=== PATIENT | male | born 1980 | race American Indian/Alaskan Native ===

== ENCOUNTER 2020-12-27 12:48 | Emergency (ER) | payer SELFPAY | END 2020-12-27 13:30 | disposition left against medical advice (07) | LOC: ED 12:48 | DX: Z53.21 Procedure and treatment not carried out due to patient leaving prior to being seen by health care provider (principal) ==

== ENCOUNTER 2020-12-27 22:01 | Emergency (ER) | payer OTHER ==
--- NOTE | 2020-12-27 23:15 | Event Note ---
ED Screening Note Date of service: 12/27/20 Time: 23:14 ED Screening Note: 40-year-old -[place] male presents to the emergency room planing of abdominal pain. Patient states has been drinking since Carter's Day after the of his grandfather. This initial assessment/diagnostic orders/clinical plan/treatment(s) is/are subject to change based on patients health status, clinical progression and re- assessment by fellow clinical providers in the ED. Further treatment and workup at subsequent clinical providers discretion. Patient/guardian urged not to elope from the ED as their condition may be serious if not clinically assessed and managed. Initial orders include:
[2020-12-27] MEDS ORDERED: SODIUM CHLORIDE 0.9% 1000 ML 1,000 ML IV ONE (23:52)
[2020-12-27] MEDS ORDERED: ONDANSETRON 4 MG/2 ML INJ IV ONE (23:53)
--- NOTE | 2020-12-27 23:56 | Emergency Department Report ---
ED Abdominal Pain HPI - General Chief Complaint: Abdominal Pain Stated Complaint: STOMACH PAIN, N/V PUI?: No Time Seen by Provider: 12/27/20 23:52 Source: patient Mode of arrival: Ambulatory Limitations: No Limitations - History of Present Illness Initial Comments: Patient is a 40-year-old male that presents emergency room with complaints of generalized abdominal pain, nausea and vomiting. Patient states his symptoms been going off and on since December 09. Patient states he started drinking heavily when his grandfather on . Patient states he is had a drink at least every day. Patient states he is drunk every day. Patient also complains of nausea and vomiting. Patient states the abdominal pain is generalized. Patient states he is also been taking ibuprofen for the pain. Patient denies recent travel. Patient denies recent international travel. Patient denies exposure to the novel coronavirus. Patient denies sick contacts. Patient denies fever and chills. Patient denies cough. Patient denies diarrhea. Patient denies coming in contact with anybody with symptoms of the novel coronavirus. MD Complaint: abdominal pain -: Sudden, week(s) Location: diffuse Radiation: none Migration to: no migration Severity: severe Severity scale (0 -10): 10 Quality: stabbing Consistency: constant Improves With: rest Worsens With: eating, vomiting, movement Context: other Associated Symptoms: nausea, vomiting. denies: diarrhea, fever (Patient is a Advil and alcohol for pain.), chills, constipation, dysuria, hematemesis, hematochezia, melena, hematuria, syncope - Related Data Previous Rx's Medication Instructions Recorded Last Taken Type Omeprazole 40 mg PO BID #20 capsule. 12/28/20 Unknown Rx Ondansetron [Zofran Odt] 4 mg PO Q6HR PRN #20 tab.rapdis 12/28/20 Unknown Rx Allergies Allergy/AdvReac Type Severity Reaction Status Date / Time No Known Allergies Allergy Unverified 12/27/20 23:12 ED Review of Systems ROS: Stated complaint: STOMACH PAIN, N/V Other details as noted in HPI Constitutional: denies: chills, fever Eyes: denies: eye pain, eye discharge, vision change ENT: denies: ear pain, throat pain Respiratory: denies: cough, shortness of breath, wheezing Cardiovascular: denies: chest pain, palpitations Endocrine: no symptoms reported Gastrointestinal: as per HPI, abdominal pain, nausea, vomiting. denies: diarrhea Genitourinary: denies: urgency, dysuria Musculoskeletal: denies: back pain, joint swelling, arthralgia Skin: denies: rash, lesions Neurological: denies: headache, weakness, paresthesias Psychiatric: denies: anxiety, depression Hematological/Lymphatic: denies: easy bleeding, easy bruising ED Past Medical Hx - Past Medical History Previous Medical History?: Yes Hx Hypertension: Yes - Surgical History Past Surgical History?: No - Family History Family history: no significant - Social History Smoking Status: Never Smoker Substance Use Type: Alcohol - Medications Home Medications: Home Medications Medication Instructions Recorded Confirmed Last Taken Type Omeprazole 40 mg PO BID #20 capsule. 12/28/20 Unknown Rx Ondansetron [Zofran Odt] 4 mg PO Q6HR PRN #20 tab.tess 12/28/20 Unknown Rx ED Physical Exam - General Limitations: No Limitations General appearance: alert, in no apparent distress - Head Head exam: Present: atraumatic, normocephalic - Eye Eye exam: Present: normal appearance - ENT ENT exam: Present: mucous membranes moist - Neck Neck exam: Present: normal inspection - Respiratory Respiratory exam: Present: normal lung sounds bilaterally. Absent: respiratory distress - Cardiovascular Cardiovascular Exam: Present: regular rate, normal rhythm. Absent: systolic murmur, diastolic murmur, rubs, gallop - GI/Abdominal GI/Abdominal exam: Present: soft, tenderness (Generalized tenderness to palpa tion), normal bowel sounds - Rectal Rectal exam: Present: deferred - Extremities Exam Extremities exam: Present: normal inspection - Back Exam Back exam: Present: normal inspection - Neurological Exam Neurological exam: Present: alert, oriented X3 - Psychiatric Psychiatric exam: Present: normal affect, normal mood - Skin Skin exam: Present: warm, dry, intact, normal color. Absent: rash ED Course Vital Signs 12/27/20 12/28/20 12/28/20 23:01 00:23 05:38 Temperature 98.3 F 98.0 F Pulse Rate 144 H 124 H 122 H Respiratory 18 20 17 Rate Blood Pressure 182/116 Blood Pressure 159/100 [Right] O2 Sat by Pulse 100 100 98 Oximetry - Reevaluation(s) Reevaluation #1: Patient states he is feeling much better. Patient receiving banana bag and fluids. Patient states his nausea has resolved. 12/28/20 01:09 Reevaluation #2: Patient states his nausea and vomiting have resolved. Patient states he tolerated p.o. intake. Patient tolerated GI cocktail. Patient states his abdominal pain and epigastric pain are better. 12/28/20 04:25 Reevaluation #3: I discussed all results and clinical findings with patient. I discussed plan of care with patient. Patient agrees with plan of care. Patient is stable for discharge. Patient will be discharged home. Patient given discharge instructions. Patient voiced understanding of discharge instructions. 12/28/20 05:25 ED Medical Decision Making - Lab Data Result diagrams: 12/27/20 23:19 12/27/20 23:19 - Radiology Data Radiology results: report reviewed CT ABDOMEN AND PELVIS WITH CONTRAST HISTORY: Epigastric pain. COMPARISON: None TECHNIQUE: Routine abdominal and pelvic CT exam performed following intravenous contrast administration.. All CT scans at this location are performed using CT dose reduction for ALARA by means of automated exposure control. FINDINGS: CT ABDOMEN: Lung Bases: No significant abnormality. Liver: No significant abnormality. Biliary: No significant abnormality. Spleen: No significant abnormality. Unenlarged. Pancreas: No significant abnormality. Adrenals: No significant abnormality. Kidneys: No significant abnormality. Lymphatics: No lymphadenopathy. Vasculature: No significant abnormality. Bowel/Peritoneum: No significant abnormality. No free air. No free fluid. Normal appendix. CT PELVIC: : No significant abnormality. Lymphatics: No lymphadenopathy. Osseous Structures: No aggressive appearing osseous lesions. Additional Findings: None IMPRESSION: 1. No acute findings. - Medical Decision Making Patient is a 40-year-old male who presents emergency room with complaints of abdominal pain and nausea vomiting. Patient's been drinking heavily for the past few weeks. Patient is also taking ibuprofen on top of the alcohol. Patient given fluids, patient also reviewed Zofran and Reglan. Patient's nausea eventually resolved. Patient then given a GI cocktail and his symptoms improved. Patient tolerated p.o. challenge. Patient had a CT scan of the abdomen done which was negative for acute findings. Patient had labs done which were consistent with acute alcohol intoxication. Patient responded well to treatment. Patient given treatment programs to follow-up as an outpatient. Patient monitored until he was clinically and legally sober. Patient stable for discharge. Patient given discharge instructions. - Differential Diagnosis Alcoholic gastritis, abdominal pain, nausea, vomiting, Critical care attestation.: If time is entered above; I have spent that time in minutes in the direct care of this critically ill patient, excluding procedure time. ED Disposition Clinical Impression: Acute alcohol intoxication Qualifiers: Complication of substance-induced condition: uncomplicated Qualified Code(s): F10.920 - Alcohol use, unspecified with intoxication, uncomplicated Nausea & vomiting Qualifiers: Vomiting type: unspecified Vomiting Intractability: non-intractable Qualified Code(s): R11.2 - Nausea with vomiting, unspecified Abdominal pain Qualifiers: Abdominal location: generalized Qualified Code(s): R10.84 - Generalized abdominal pain Alcoholic gastritis Qualifiers: Chronicity: acute Gastritis bleeding: without bleeding Qualified Code(s): K29.20 - Alcoholic gastritis without bleeding Disposition: TO HOME OR SELFCARE Is pt being admited?: No Does the pt Need Aspirin: No Condition: Stable Instructions: Gastritis, Adult, [id number], Binge-Drinking Information, Adult, Nausea and Vomiting, Adult Additional Instructions: Patient to follow-up with primary care in 2 to 3 days. Patient to decrease alcohol intake. Patient to go to rehab as soon as possible. Patient to rest. Patient to increase water. Patient to avoid drug use. Patient to eat a reflux diet. Patient to avoid ibuprofen. Patient to take Tylenol as needed for pain. Patient to take meds as directed. Patient to return to the ER if condition worsens, changes or new symptoms arise. Patient to follow-up with one of the outpatient treatment program provided to him in the ER. Prescriptions: Omeprazole 40 mg PO BID #20 capsule. Ondansetron [Zofran Odt] 4 mg PO Q6HR PRN #20 tab.rapdis PRN Reason: Nausea And Vomiting Referrals: PRIMARY CARE, [Primary Care Provider] - 2-3 Days SHAZIA ROSA MD [Staff Physician] - 2-3 Days Time of Disposition: :28
[2020-12-28 00:03] LABS: Basophils % (Auto) 0.9 % (0.0-1.8); Eosinophils % (Auto) 0.1 % (0.0-4.3); Hematocrit 44.7 % (35.5-45.6); Hemoglobin 15.7 gm/dl (11.8-15.2); Lymphocytes % (Auto) 51.3 % (13.4-35.0); Mean Corpuscular HGB Conc 35 % (32-34); Mean Corpuscular Volume 90 fl (84-94); Monocytes # (Auto) 0.4 K/mm3 (0.0-0.8); Monocytes % (Auto) 9.7 % (0.0-7.3); Platelet Count 302 K/mm3 (140-440); Red Blood Count 4.97 M/mm3 (3.65-5.03); Red Cell Distribution Width 13.4 % (13.2-15.2)
[2020-12-28 00:23] VITALS: BP 159/100
[2020-12-28 00:25] LABS: Amphetamine Screen,Urine PRESUMPTIVE NEGATIVE; Benzodiazepines Screen,Urine PRESUMPTIVE NEGATIVE; Cannabinoid Screen,Urine PRESUMPTIVE POSITIVE; Cocaine Screen,Urine PRESUMPTIVE POSITIVE; Methadone Screen,Urine PRESUMPTIVE NEGATIVE; Opiate Screen,Urine PRESUMPTIVE NEGATIVE
[2020-12-28] MEDS ORDERED: THIAMINE 100 MG, FOLIC ACID 1 MG, MULTIPLE VITAMIN INJ, ADULT 10 ML in SODIUM CHLORIDE ... IV ONE (00:25)
[2020-12-28 00:47] LABS: Alanine Aminotransferase 44 units/L (7-56); Albumin 4.9 g/dL (3.9-5); BUN/Creatinine Ratio 11; Blood Urea Nitrogen 10 mg/dL (9-20); Hemolysis Index 6
--- NOTE | 2020-12-28 01:13 | Cat Scan Report ---
CT ABDOMEN AND PELVIS WITH CONTRAST HISTORY: Epigastric pain. COMPARISON: None TECHNIQUE: Routine abdominal and pelvic CT exam performed following intravenous contrast administrat ion.. All CT scans at this location are performed using CT dose reduction for ALARA by means of autom ated exposure control. FINDINGS: CT ABDOMEN: Lung Bases: No significant abnormality. Liver: No significant abnormality. Biliary: No significant abnormality. Spleen: No significant abnormality. Unenlarged. Pancreas: No significant abnormality. Adrenals: No significant abnormality. Kidneys: No significant abnormality. Lymphatics: No lymphadenopathy. Vasculature: No significant abnormality. Bowel/Peritoneum: No significant abnormality. No free air. No free fluid. Normal appendix. CT PELVIC: : No significant abnormality. Lymphatics: No lymphadenopathy. Osseous Structures: No aggressive appearing osseous lesions. Additional Findings: None IMPRESSION: 1. No acute findings. Signer Name: Edgar Blackburn MD Signed: 12/28/2020 1:08 AM Workstation Name: [id number]
[2020-12-28] MEDS ORDERED: LIDOCAINE VISCOUS 2% 15 ML ORAL LIQD PO ONE (02:42)
[2020-12-28] MEDS ORDERED: ALUM-MAG HYDROXIDE-SIMETHICONE 200-200-20MG/5ML ORAL LIQD 30 ML PO ONE (02:42)
[2020-12-28] MEDS ORDERED: METOCLOPRAMIDE 10 MG/2 ML INJ IV ONE (02:46)
== END 2020-12-28 05:38 | disposition home or self-care (01) ==
LOC: ED 22:01
DX: F10.129 Alcohol abuse with intoxication, unspecified (principal); K29.20 Alcoholic gastritis without bleeding; I10 Essential (primary) hypertension; Z79.899 Other long term (current) drug therapy
CPT/HCPCS: 36415; 74177; 80053; 80307; 83690; 83735; 84100; 85025; 96365; 96375; 99284; J2405; J2765; J3411; J7030; Q9967; 80320; G0480

== ENCOUNTER 2021-03-11 19:49 | Emergency (ER) | payer OTHER ==
--- NOTE | 2021-03-11 20:27 | Emergency Department Report ---
ED Seizure HPI - General Chief Complaint: Seizure Stated Complaint: SEIZURE Time Seen by Provider: 03/11/21 20:22 Source: patient Mode of arrival: Ambulatory Limitations: No Limitations - History of Present Illness Initial Comments: Patient is 41 years old male with no significant past medical history. Patient brought to the emergency room via EMS from work after patient had a seizure-like episode. Patient stated that he does not remember anything. Patient stated that he is a coworker told him that he fell on the ground and started convulsing. Patient has a hematoma to the left posterior scalp. Patient denied any history of seizure before. Patient stated that he did not sleep last night he was watching a show the whole night and then he went to work in the morning. MD Complaint: seizure -: Sudden Description of Episode: loss of consciousness, tonic-clonic movement, post-event confusion Witnessed:: Yes Trauma: Yes Seizure History: none Place: work Associated Symptoms: denies other symptoms Treatments Prior to Arrival: none - Related Data Previous Rx's Medication Instructions Recorded Last Taken Type Omeprazole 40 mg PO BID #20 capsule. 12/28/20 Unknown Rx Ondansetron [Zofran Odt] 4 mg PO Q6HR PRN #20 tab.rapdis 12/28/20 Unknown Rx Allergies Allergy/AdvReac Type Severity Reaction Status Date / Time No Known Allergies Allergy Unverified 12/27/20 23:12 ED Review of Systems ROS: Stated complaint: SEIZURE Other details as noted in HPI Comment: All other systems reviewed and negative Constitutional: denies: chills, fever Respiratory: denies: cough, shortness of breath, SOB with exertion, SOB at rest Cardiovascular: palpitations. denies: chest pain Gastrointestinal: denies: abdominal pain, nausea, vomiting, diarrhea, constipation, hematemesis Musculoskeletal: denies: back pain Neurological: denies: headache ED Past Medical Hx - Past Medical History Previous Medical History?: No Hx Hypertension: Yes - Surgical History Past Surgical History?: No - Social History Smoking Status: Unknown if ever smoked Substance Use Type: None - Medications Home Medications: Home Medications Medication Instructions Recorded Confirmed Last Taken Type Omeprazole 40 mg PO BID #20 capsule. 12/28/20 Unknown Rx Ondansetron [Zofran Odt] 4 mg PO Q6HR PRN #20 tab.rapdis 12/28/20 Unknown Rx ED Physical Exam - General Limitations: No Limitations General appearance: alert, anxious - Head Head exam: Present: normocephalic, other (4 cm x 4 cm hematoma to the left posterior scalp.) - Eye Eye exam: Present: normal appearance - ENT ENT exam: Present: normal exam, normal orophraynx, mucous membranes moist - Neck Neck exam: Present: normal inspection, full ROM. Absent: tenderness, meningismus - Respiratory Respiratory exam: Present: normal lung sounds bilaterally - Cardiovascular Cardiovascular Exam: Present: tachycardia - GI/Abdominal GI/Abdominal exam: Present: soft, normal bowel sounds. Absent: distended, tenderness, guarding, rebound, rigid, organomegaly, mass, bruit, pulsatile mass, hernia - Extremities Exam Extremities exam: Present: normal inspection, full ROM, normal capillary refill. Absent: tenderness, pedal edema, joint swelling, calf tenderness - Back Exam Back exam: Present: normal inspection, full ROM. Absent: CVA tenderness (R), CVA tenderness (L) - Neurological Exam Neurological exam: Present: alert, oriented X3, CN II-XII intact, normal gait, r eflexes normal. Absent: motor sensory deficit - Psychiatric Psychiatric exam: Present: normal mood, anxious - Skin Skin exam: Present: warm, intact, normal color ED Course Vital Signs 03/11/21 03/11/21 03/11/21 19:50 20:02 20:16 Temperature 98.8 F Pulse Rate 134 H 120 H 113 H Respiratory 16 20 20 Rate Blood Pressure 142/74 147/99 O2 Sat by Pulse 100 100 Oximetry 03/11/21 03/11/21 03/11/21 20:30 20:46 21:00 Temperature Pulse Rate 106 H 112 H 108 H Respiratory 22 13 17 Rate Blood Pressure 150/99 150/99 137/95 O2 Sat by Pulse 100 100 100 Oximetry 03/11/21 03/11/21 03/11/21 21:20 21:42 22:00 Temperature Pulse Rate 105 H 106 H 107 H Respiratory 13 23 14 Rate Blood Pressure 137/95 O2 Sat by Pulse 100 100 100 Oximetry 03/11/21 03/11/21 03/11/21 22:20 22:40 23:00 Temperature Pulse Rate 113 H 105 H 108 H Respiratory 21 16 19 Rate Blood Pressure 140/105 140/105 140/105 O2 Sat by Pulse 99 100 100 Oximetry ED Medical Decision Making - Lab Data Result diagrams: 03/11/21 20:29 03/11/21 20:29 - EKG Data -: EKG Interpreted by Me EKG shows normal: sinus rhythm Rate: tachycardia - EKG Data Interpretation: no acute changes - Radiology Data Radiology results: report reviewed - Medical Decision Making Patient is 41 years old male with no significant past medical history. Patient brought to the emergency room via EMS from work after patient had a seizure-like episode. Patient stated that he does not remember anything. Patient stated that he is a coworker told him that he fell on the ground and started convulsing. Patient has a hematoma to the left posterior scalp. Patient denied any history of seizure before. Patient stated that he did not sleep last night he was watching a show the whole night and then he went to work in the morning. No seizure activity observed in the ER. Patient remained stable with stable vital sign. Labs reviewed and is unremarkable except for positive UDS for cocaine and marijuana. CT brain is negative for acute finding. Patient advised to follow-up with his primary care physician in the next 2 to 3 days. Patient also advised not to operate or drive heavy machinery. Patient also advised to return to the ER if he develop any new symptoms. Critical care attestation.: If time is entered above; I have spent that time in minutes in the direct care of this critically ill patient, excluding procedure time. ED Disposition Clinical Impression: Seizure-like activity Disposition: DC-01 TO HOME OR SELFCARE Is pt being admited?: No Condition: Stable Instructions: Seizure, Adult, [id number] Referrals: PRIMARY CARE, [Primary Care Provider] - 3-5 Days
[2021-03-11 20:48] LABS: Basophils % (Auto) 0.2 % (0.0-1.8); Eosinophils % (Auto) 0.2 % (0.0-4.3); Hematocrit 36.8 % (35.5-45.6); Hemoglobin 12.7 gm/dl (11.8-15.2); Lymphocytes # (Auto) 0.5 K/mm3 (1.2-5.4); Mean Corpuscular HGB Conc 35 % (32-34); Mean Corpuscular Volume 91 fl (84-94); Monocytes # (Auto) 0.3 K/mm3 (0.0-0.8); Monocytes % (Auto) 5.8 % (0.0-7.3); Platelet Count 229 K/mm3 (140-440); Red Blood Count 4.04 M/mm3 (3.65-5.03); Red Cell Distribution Width 13.3 % (13.2-15.2)
[2021-03-11 21:03] LABS: Alanine Aminotransferase 57 units/L (7-56); Albumin 4.4 g/dL (3.9-5); BUN/Creatinine Ratio 23; Blood Urea Nitrogen 23 mg/dL (9-20); Calcium 9.8 mg/dL (8.4-10.2); Hemolysis Index 6
[2021-03-11 21:05] LABS: Bilirubin,Direct < 0.2 mg/dL (0-0.2)
[2021-03-11 21:57] LABS: Bilirubin,Urine NEG (Negative); Blood,Urine NEG (Negative); Color,Urine Yellow (Yellow); Mucus,Urine FEW /HPF; Urobilinogen,Urine < 2.0 mg/dL (<2.0)
[2021-03-11 22:05] LABS: Amphetamine Screen,Urine Negative; Benzodiazepines Screen,Urine Negative; Methadone Screen,Urine Negative; Opiate Screen,Urine Negative
--- NOTE | 2021-03-11 22:08 | Cat Scan Report ---
CT head/brain wo con INDICATION / CLINICAL INFORMATION: 41 years Male; Seizure / new onset. TECHNIQUE: Routine CT head without contrast. All CT scans at this location are performed using CT dos e reduction for ALARA by means of automated exposure control. COMPARISON: None. FINDINGS: BRAIN / INTRACRANIAL CONTENTS: No acute hemorrhage, mass effect, midline shift, hydrocephalus, or acu te, large territorial infarct. No signs of significant atrophy or chronic infarct. No significant whi te matter abnormality seen. CRANIOCERVICAL JUNCTION: No significant abnormality. ORBITS: No significant abnormality of visualized orbits. SINUSES / MASTOIDS: Focal dehiscence of lamina papyracea noted on the left. ADDITIONAL FINDINGS: Subcutaneous soft tissue swelling seen in the left posterior parietal region. No signs of underlying calvarial fracture. IMPRESSION: 1. No focal mass, intracranial hemorrhage, hydrocephalus, or acute, large territorial infarct. Signer Name: Bubba Birmingham MD, III Signed: 03/11/2021 10:04 PM Workstation Name: [id number]
[2021-03-11 22:18] LABS: Cannabinoid Screen,Urine Positive; Cocaine Screen,Urine Positive
[2021-03-11 23:07] VITALS: BP 140/105
--- NOTE | 2021-03-12 10:30 | Electrocardiograph Report ---
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
== END 2021-03-12 01:15 | disposition home or self-care (01) ==
LOC: ED 19:49
DX: R56.9 Unspecified convulsions (principal); I10 Essential (primary) hypertension; Z79.899 Other long term (current) drug therapy
CPT/HCPCS: 36415; 70450; 80048; 80076; 80307; 80320; 81001; 82550; 85025; 93005; G0480

== ENCOUNTER 2021-09-09 19:12 | Emergency (ER) | payer OTHER ==
[2021-09-09] MEDS ORDERED: OLANzapine ZYDIS 5 MG TAB PO ONE (19:45)
--- NOTE | 2021-09-09 19:46 | Emergency Department Report ---
ED General Adult HPI - General Chief complaint: Psych Stated complaint: DEPRESSION, ANXIETY Time Seen by Provider: 09/09/21 19:35 Source: patient Mode of arrival: Ambulatory Limitations: No Limitations - History of Present Illness Initial comments: Patient presents with depression and anxiety. He states that he is very mad at himself and disappointed. He states that his grandmother 3 weeks ago. He has been on an alcohol and drug binge since then. He has been using pills, cocaine, and drinking. He came in for evaluation treatment because he was just upset with himself. He is not suicidal or homicidal. Is not delusional. He states that he wants help. He knows that what he did was stupid and he should not have done it. He states that his dropped him off. Patient is not hearing voices. He states that he does not feel things crawling on his skin. Severity scale (0 -10): 2 - Related Data Previous Rx's Medication Instructions Recorded Last Taken Type Omeprazole 40 mg PO BID #20 capsule. 12/28/20 Unknown Rx Ondansetron [Zofran ODT TAB] 4 mg PO Q6HR PRN #20 tab.rapdis 09/09/21 Unknown Rx hydrOXYzine HCL [Atarax] 25 mg PO Q6HR PRN #30 tablet 09/09/21 Unknown Rx Allergies Allergy/AdvReac Type Severity Reaction Status Date / Time No Known Allergies Allergy Unverified 12/27/20 23:12 ED Review of Systems ROS: Stated complaint: DEPRESSION, ANXIETY Other details as noted in HPI Comment: All other systems reviewed and negative Constitutional: denies: fever Eyes: denies: eye pain ENT: denies: throat pain Respiratory: denies: cough Cardiovascular: denies: chest pain Endocrine: denies: unexplained weight loss Gastrointestinal: denies: abdominal pain Genitourinary: denies: dysuria Musculoskeletal: denies: back pain Skin: denies: rash Neurological: denies: headache Hematological/Lymphatic: denies: easy bruising ED Past Medical Hx - Past Medical History Previous Medical History?: No Hx Hypertension: Yes - Surgical History Past Surgical History?: No - Family History Family history: hypertension - Social History Smoking Status: Unknown if ever smoked Substance Use Type: None - Medications Home Medications: Home Medications Medication Instructions Recorded Confirmed Last Taken Type Omeprazole 40 mg PO BID #20 capsule. 12/28/20 Unknown Rx Ondansetron [Zofran ODT TAB] 4 mg PO Q6HR PRN #20 tab.tess 09/09/21 Unknown Rx hydrOXYzine HCL [Atarax] 25 mg PO Q6HR PRN #30 tablet 09/09/21 Unknown Rx ED Physical Exam - General Limitations: No Limitations, Other General appearance: alert (Socks noted and normal), in no apparent distress - Head Head exam: Present: atraumatic, normocephalic - Eye Eye exam: Present: normal appearance, EOMI. Absent: scleral icterus - ENT ENT exam: Present: normal exam, mucous membranes moist - Neck Neck exam: Present: normal inspection. Absent: meningismus - Respiratory Respiratory exam: Present: normal lung sounds bilaterally. Absent: respiratory distress - Cardiovascular Cardiovascular Exam: Present: regular rate, normal rhythm - GI/Abdominal GI/Abdominal exam: Present: soft. Absent: tenderness - Extremities Exam Extremities exam: Present: normal capillary refill - Back Exam Back exam: Absent: CVA tenderness (R), CVA tenderness (L) - Neurological Exam Neurological exam: Present: alert, oriented X3, CN II-XII intact, normal gait. Absent: motor sensory deficit - Psychiatric Psychiatric exam: Present: other (Tearful) - Skin Skin exam: Present: warm, dry ED Course Vital Signs 09/09/21 09/09/21 19:13 19:47 Temperature 98.8 F Pulse Rate 89 Respiratory 18 Rate Blood Pressure 145/103 [Left] O2 Sat by Pulse 98 98 Oximetry - Reevaluation(s) Reevaluation #1: 09/09/21 19:46 Labs were ordered. Records reviewed. Reevaluation #2: 09/09/21 21:26 Labs of been noted. ED Medical Decision Making - Lab Data Result diagrams: 09/09/21 20:07 09/09/21 20:07 - Medical Decision Making Patient presents with alcohol use and drug abuse. He is not suicidal homicidal. He stated that he wanted help. He was concerned that he was going to withdrawal. He is not hallucinating. There is no evidence of acute delusion or psychosis. We have had a discussion about management of his addiction issues. Patient can be treated symptomatically. He is referred to PCP for recheck. His is comfortable with the plan and picking them up. Critical Care Time: No Critical care attestation.: If time is entered above; I have spent that time in minutes in the direct care of this critically ill patient, excluding procedure time. ED Disposition Clinical Impression: Substance abuse, Situational depression Alcohol intoxication Qualifiers: Complication of substance-induced condition: with unspecified complication Qualified Code(s): F10.929 - Alcohol use, unspecified with intoxication, unspecified Disposition: HOME / SELF CARE / HOMELESS Is pt being admited?: No Condition: Stable Instructions: Binge-Drinking Information, Adult, Substance Use Disorder, Complicated Grief Additional Instructions: Drink plenty water. Return for problems. Follow-up with your regular doctor for recheck. If you do not have a regular doctor, follow-up with the referral physician. Avoid all alcohol and street drugs. Prescriptions: hydrOXYzine HCL [Atarax] 25 mg PO Q6HR PRN #30 tablet PRN Reason: Anxiety Ondansetron [Zofran ODT TAB] 4 mg PO Q6HR PRN #20 tab.rapdis PRN Reason: Nausea And Vomiting Referrals: PRIMARY CARE, [Primary Care Provider] - 3-5 Days CHAD SEGURA MD [Staff Physician] - 3-5 Days
[2021-09-09 20:47] LABS: Hematocrit 39.9 % (35.5-45.6); Hemoglobin 13.3 gm/dl (11.8-15.2); Mean Corpuscular HGB Conc 33 % (32-34); Mean Corpuscular Volume 91 fl (84-94); Platelet Count 385 K/mm3 (140-440); Red Blood Count 4.39 M/mm3 (3.65-5.03); Red Cell Distribution Width 15.9 % (13.2-15.2)
[2021-09-09 20:57] LABS: Alanine Aminotransferase 37 units/L (7-56); Albumin 4.6 g/dL (3.9-5); Blood Urea Nitrogen 9 mg/dL (9-20); Calcium 9.5 mg/dL (8.4-10.2); Hemolysis Index 13
[2021-09-09 21:01] LABS: BUN/Creatinine Ratio 15
[2021-09-09] MEDS ORDERED: POTASSIUM CHLORIDE ER 20 MEQ TAB PO ONE (21:14)
[2021-09-09 21:43] VITALS: BP 133/93
== END 2021-09-09 21:48 | disposition home or self-care (01) ==
LOC: EEVIPCON 19:12 → ED 19:12
DX: F32.9 Major depressive disorder, single episode, unspecified (principal); F10.129 Alcohol abuse with intoxication, unspecified; F19.10 Other psychoactive substance abuse, uncomplicated; Z79.899 Other long term (current) drug therapy; Y90.9 Presence of alcohol in blood, level not specified
CPT/HCPCS: 36415; 80053; 80320; 85027; 99284; G0480

== ENCOUNTER 2021-09-13 15:54 | Emergency (ER) | payer OTHER | END 2021-09-13 17:05 | disposition left against medical advice (07) | LOC: ED 15:54 | DX: F41.9 Anxiety disorder, unspecified (principal); Z53.21 Procedure and treatment not carried out due to patient leaving prior to being seen by health care provider ==

== ENCOUNTER 2021-11-23 15:54 | Emergency (ER) | payer OTHER ==
[2021-11-23 16:44] VITALS: BP 150/98
--- NOTE | 2021-11-23 17:01 | Emergency Department Report ---
Blank Doc - Documentation Documentation: I went to evaluate patient in exam room, patient is not present in the exam ro om, I have not physically examined or spoke with patient, I was advised by nurse that he keeps leaving the exam room to go talk on the telephone in the waiting room
== END 2021-11-24 17:18 | disposition left against medical advice (07) ==
LOC: ED 15:54
DX: Z00.00 Encounter for general adult medical examination without abnormal findings (principal); Z53.21 Procedure and treatment not carried out due to patient leaving prior to being seen by health care provider

== ENCOUNTER 2021-11-29 13:08 | Emergency (ER) | payer OTHER | END 2021-11-29 23:08 | disposition left against medical advice (07) | LOC: ED 13:08 | DX: Z00.00 Encounter for general adult medical examination without abnormal findings (principal); Z53.21 Procedure and treatment not carried out due to patient leaving prior to being seen by health care provider ==

== ENCOUNTER 2021-12-01 14:30 | Emergency (ER) | payer OTHER ==
[2021-12-01 15:00] VITALS: BP 134/91
[2021-12-01] MEDS ORDERED: LORazepam 2 MG TAB PO PRN ×2 (16:03)
[2021-12-01] MEDS ORDERED: METOCLOPRAMIDE 10 MG TAB PO ONE (16:03)
[2021-12-01] MEDS ORDERED: chlordiazePOXIDE 25 MG CAP PO PRN ×2 (16:03)
[2021-12-01] MEDS ORDERED: diazePAM 5 MG TAB PO ONE (16:03)
--- NOTE | 2021-12-01 16:05 | Emergency Department Report ---
ED General Adult HPI - General Chief complaint: Alcohol Stated complaint: DETOX Time Seen by Provider: 12/01/21 15:32 Source: patient, RN notes reviewed, old records reviewed Mode of arrival: Ambulatory Limitations: No Limitations - History of Present Illness Initial comments: The patient was evaluated in the emergency department for symptoms described in the history of present illness. He/she was evaluated in the context of the global COVID-19 pandemic, which necessitated consideration that the patient might be at risk for infection with the virus that causes COVID-19. Institutional protocols and algorithms that pertain to the evaluation of pat ients at risk for COVID-19 are in a state of rapid change based on information released by regulatory bodies including the CDC and federal and state organizations. These policies and algorithms were followed during the patient's care in the emergency department. Please note that these policies, procedures and recommendations changed on a rapid basis. The patient is a 41-year-old gentleman who presents to the ER today with request for alcohol detox. He reports that he last had a drink earlier on today. He has epigastric burning and nausea, but otherwise denies physical pain. He is not homicidal or suicidal. He feels a little bit anxious. He reports that he has 5 children, and "a lot to live for." Consistency: constant Improves with: none Worsens with: none - Related Data Previous Rx's Medication Instructions Recorded Last Taken Type Omeprazole 40 mg PO BID #20 capsule. 12/28/20 Unknown Rx Ondansetron [Zofran ODT TAB] 4 mg PO Q6HR PRN #20 tab.tess 09/09/21 Unknown Rx Multivitamin with Folic Acid [[facility]vs 400 mcg PO QDAY #30 tablet 12/01/21 Unknown Rx One Daily Essential Tablet] chlordiazePOXIDE [Librium] 25 mg PO Q6H PRN #25 capsule 12/01/21 Unknown Rx Allergies Allergy/AdvReac Type Severity Reaction Status Date / Time No Known Allergies Allergy Verified 11/23/21 16:44 ED Review of Systems ROS: Stated complaint: DETOX Other details as noted in HPI Constitutional: denies: fever Eyes: denies: eye discharge ENT: denies: epistaxis Respiratory: denies: cough Cardiovascular: denies: chest pain Gastrointestinal: nausea Genitourinary: denies: urgency, dysuria, frequency Psychiatric: denies: homicidal thoughts, suicidal thoughts ED Past Medical Hx - Past Medical History Previous Medical History?: Yes Hx Hypertension: Yes - Surgical History Past Surgical History?: No - Social History Smoking Status: Unknown if ever smoked Substance Use Type: None - Medications Home Medications: Home Medications Medication Instructions Recorded Confirmed Last Taken Type Omeprazole 40 mg PO BID #20 capsule. 12/28/20 11/23/21 Unknown Rx Ondansetron [Zofran ODT TAB] 4 mg PO Q6HR PRN #20 tab.tess 09/09/21 11/23/21 Unknown Rx Multivitamin with Folic Acid [[facility]vs 400 mcg PO QDAY #30 tablet 12/01/21 Unknown Rx One Daily Essential Tablet] chlordiazePOXIDE [Librium] 25 mg PO Q6H PRN #25 capsule 12/01/21 Unknown Rx ED Physical Exam - General Limitations: No Limitations General appearance: alert, in no apparent distress - Head Head exam: Present: atraumatic, normocephalic - Eye Eye exam: Present: normal appearance, EOMI. Absent: nystagmus - ENT ENT exam: Present: normal exam, normal orophraynx, mucous membranes moist, normal external ear exam, other (Minimal tongue fasciculations noted) - Neck Neck exam: Present: normal inspection, full ROM. Absent: tenderness, meningismus - Respiratory Respiratory exam: Present: normal lung sounds bilaterally. Absent: respiratory distress, wheezes, rales, rhonchi, stridor, decreased breath sounds - Cardiovascular Cardiovascular Exam: Present: normal rhythm, tachycardia, normal heart sounds. Absent: bradycardia, irregular rhythm, systolic murmur, diastolic murmur, rubs, gallop - GI/Abdominal GI/Abdominal exam: Present: soft. Absent: distended, tenderness, guarding, rebound, rigid, pulsatile mass - Rectal Rectal exam: Present: deferred - Extremities Exam Extremities exam: Present: normal inspection, full ROM, other (2+ pulses noted in the bilateral upper and lower extremities. There is no palpable cord. nega tive Homans sign. Muscular compartments are soft. The pelvis is stable.). Absent: pedal edema, calf tenderness - Back Exam Back exam: Present: normal inspection, full ROM. Absent: tenderness, CVA tenderness (R), CVA tenderness (L), paraspinal tenderness, vertebral tenderness - Neurological Exam Neurological exam: Present: alert, oriented X3, other (No facial droop. Tongue midline. Extraocular movements intact bilaterally. Facial sensation intact to light touch in V1, V2, V3 distribution bilaterally. 5 and a 5 strength in 4 extremities. Sensation intact to light touch in 4 extremities.). Absent: motor sensory deficit - Psychiatric Psychiatric exam: Present: anxious. Absent: homicidal ideation, suicidal ideation - Skin Skin exam: Present: warm, dry, intact, normal color. Absent: rash ED Course Vital Signs 12/01/21 14:52 Temperature 98.4 F Pulse Rate 103 H Respiratory 18 Rate Blood Pressure 134/91 [Right] O2 Sat by Pulse 99 Oximetry - Reevaluation(s) Reevaluation #1: 12/01/21 17:25 Differential diagnosis, including but not limited to: GERD, gastritis, hiatal hernia, alcoholic gastritis, alcohol dependence, medical screening examination, behavioral health screening examination Assessment and plan: 41-year-old gentleman, who was afebrile with reassuring vital signs with improved tachycardia, who appears to be clinically sober at this time he does not appear to have evidence of an imminent or acute alcohol withdrawal. He will be medicated supportively and symptomatically. EKG unchanged from prior. Does not meet criteria for 1013 hold or involuntary hold. Check appropriate laboratory studies. Reassess. 12/01/21 18:30 Laboratory studies reviewed and appreciated. Leukopenia, transaminitis, metabo lic acidosis all likely secondary to chronic alcoholism. Called up listed phone number to discuss with spouse to arrange pickup. Nobody answered the phone, I left voicemail for call back. The patient may be discharged when he is clinically sober. ED Medical Decision Making - Lab Data Result diagrams: 12/01/21 16:34 12/01/21 16:34 Vital Signs 12/01/21 14:52 Temperature 98.4 F Pulse Rate 103 H Respiratory 18 Rate Blood Pressure 134/91 [Right] O2 Sat by Pulse 99 Oximetry Lab Results 12/01/21 Range/Units 16:34 WBC 3.5 L (4.5-11.0) K/mm3 RBC 4.40 (3.65-5.03) M/mm3 Hgb 13.1 (11.8-15.2) gm/dl Hct 39.5 (35.5-45.6) % MCV 90 (84-94) fl MCH 30 (28-32) pg MCHC 33 (32-34) % RDW 13.9 (13.2-15.2) % Plt Count 217 (140-440) K/mm3 Vital Signs 12/01/21 14:52 Temperature 98.4 F Pulse Rate 103 H Respiratory 18 Rate Blood Pressure 134/91 [Right] O2 Sat by Pulse 99 Oximetry Lab Results 12/01/21 12/01/21 12/01/21 Range/Units 16:34 16:34 16:34 WBC 3.5 L (4.5-11.0) K/mm3 RBC 4.40 (3.65-5.03) M/mm3 Hgb 13.1 (11.8-15.2) gm/dl Hct 39.5 (35.5-45.6) % MCV 90 (84-94) fl MCH 30 (28-32) pg MCHC 33 (32-34) % RDW 13.9 (13.2-15.2) % Plt Count 217 (140-440) K/mm3 Sodium 137 (137-145) mmol/L Potassium 4.2 (3.6-5.0) mmol/L Chloride 100.4 (98-107) mmol/L Carbon Dioxide 17 L (22-30) mmol/L Anion Gap 24 mmol/L BUN 12 (9-20) mg/dL Creatinine 0.8 (0.8-1.3) mg/dL Estimated GFR > 60 ml/min BUN/Creatinine Ratio 15 % Glucose 101 H (75-100) mg/dL Calcium 9.1 (8.4-10.2) mg/dL Magnesium 2.00 (1.7-2.3) mg/dL Total Bilirubin 0.60 (0.1-1.2) mg/dL AST 100 H (5-40) units/L ALT 82 H (7-56) units/L Alkaline Phosphatase 63 (35-129) units/L Total Protein 7.3 (6.3-8.2) g/dL Albumin 4.4 (3.9-5) g/dL Albumin/Globulin Ratio 1.5 % Salicylates (2.8-20.0) mg/dL Acetaminophen (10.0-30.0) ug/mL Plasma/Serum Alcohol 0.22 H (0-0.07) % 12/01/21 12/01/21 Range/Units 16:34 16:34 WBC (4.5-11.0) K/mm3 RBC (3.65-5.03) M/mm3 Hgb (11.8-15.2) gm/dl Hct (35.5-45.6) % MCV (84-94) fl MCH (28-32) pg MCHC (32-34) % RDW (13.2-15.2) % Plt Count (140-440) K/mm3 Sodium (137-145) mmol/L Potassium (3.6-5.0) mmol/L Chloride (98-107) mmol/L Carbon Dioxide (22-30) mmol/L Anion Gap mmol/L BUN (9-20) mg/dL Creatinine (0.8-1.3) mg/dL Estimated GFR ml/min BUN/Creatinine Ratio % Glucose (75-100) mg/dL Calcium (8.4-10.2) mg/dL Magnesium (1.7-2.3) mg/dL Total Bilirubin (0.1-1.2) mg/dL AST (5-40) units/L ALT (7-56) units/L Alkaline Phosphatase (35-129) units/L Total Protein (6.3-8.2) g/dL Albumin (3.9-5) g/dL Albumin/Globulin Ratio % Salicylates < 0.3 L (2.8-20.0) mg/dL Acetaminophen 5.0 L (10.0-30.0) ug/mL Plasma/Serum Alcohol (0-0.07) % - EKG Data -: EKG Interpreted by Ia EKG shows normal: sinus rhythm Rate: tachycardia - EKG Data Interpretation: unchanged when compared t (February 2021) 12/01/21 17:24 The EKG is interpreted at 15: 13 Sinus rhythm, tachycardia, rate 109 bpm. Normal axis, normal P wave axis, high left ventricular voltage, QTC 4 3 ms. Minimal motion artifact. Not a STEMI. Critical care attestation.: If time is entered above; I have spent that time in minutes in the direct care of this critically ill patient, excluding procedure time. ED Disposition Clinical Impression: Alcohol dependence, Transaminitis, Dehydration Disposition: 07 LEFT AWOL/ELOPED Is pt being admited?: No Does the pt Need Aspirin: No Condition: Undetermined Additional Instructions: Please follow-up with outpatient resources that have been provided to the patient. Take the Librium as needed for sensation of alcohol withdrawal, and multivitamin on a daily basis. Consume foods that are high in magnesium, potassium, such as banana, potato and avocado. Recommend follow-up with a primary care doctor within the next 2 to 4 weeks. Do not consume alcohol, and operate motor vehicles. Recommend gradual taper/discontinuation of alcohol consumption. Long-term consumption of alcohol may cause disability, loss of quality of life, and permanent endorgan damage. Please return to the emergency room right away with new pain, worsened pain, migration of pain, projectile vomiting, change in mental status, confusion, inability tolerate liquid feeds, new, worsened or different symptoms not present on the initial emergency room evaluation Prescriptions: Multivitamin with Folic Acid [Cvs One Daily Essential Tablet] 400 mcg PO QDAY #30 tablet chlordiazePOXIDE [Librium] 25 mg PO Q6H PRN #25 capsule PRN Reason: Alcohol Withdrawal Referrals: [facility] [Provider Group] - 3-5 Days [facility] [Outside] - 3-5 Days [facility] [Outside] - 3-5 Days
[2021-12-01 17:18] LABS: Hematocrit 39.5 % (35.5-45.6); Hemoglobin 13.1 gm/dl (11.8-15.2); Mean Corpuscular HGB Conc 33 % (32-34); Mean Corpuscular Volume 90 fl (84-94); Platelet Count 217 K/mm3 (140-440); Red Cell Distribution Width 13.9 % (13.2-15.2)
[2021-12-01 17:59] LABS: Alanine Aminotransferase 82 units/L (7-56); Albumin 4.4 g/dL (3.9-5); BUN/Creatinine Ratio 15; Blood Urea Nitrogen 12 mg/dL (9-20); Calcium 9.1 mg/dL (8.4-10.2); Hemolysis Index 8
== END 2021-12-01 19:53 | disposition left against medical advice (07) ==
LOC: ED 14:30
DX: F10.20 Alcohol dependence, uncomplicated (principal); R74.01 Elevation of levels of liver transaminase levels; E86.0 Dehydration; I10 Essential (primary) hypertension; Z79.899 Other long term (current) drug therapy; Y90.0 Blood alcohol level of less than 20 mg/100 ml
CPT/HCPCS: 36415; 80053; 80320; 83735; 85027; 93005; 93010; 99282; 99283; G0480

== ENCOUNTER 2021-12-04 06:42 | Emergency (ER) | payer OTHER ==
--- NOTE | 2021-12-04 08:14 | Event Note ---
ED Screening Note ED Screening Note: LARGE AMOUNTS HARD LIQUOR, COCAINE AND TYLENOL PM TO AVOID REALITY THINKS OF HARMING SELF; BY TAKING DRUGS /5 KIDS LAST DRINK THIS AM HX ANXIETY OFF MEDS NO HI SPOKE TO MARVINDARLENE WHO SENT HIM HERE This initial assessment/diagnostic orders/clinical plan/treatment(s) is/are subject to change based on patients health status, clinical progression and re- assessment by fellow clinical providers in the ED. Further treatment and workup at subsequent clinical providers discretion. Patient/guardian urged not to elope from the ED as their condition may be serious if not clinically assessed and managed. Initial orders include: CABRERA POWELL FOR PLACEMENT
[2021-12-04] MEDS ORDERED: ONDANSETRON 4 MG/2 ML INJ IV ONE (08:17)
[2021-12-04] MEDS ORDERED: SODIUM CHLORIDE 0.9% 1000 ML 1,000 ML ONE (08:56)
[2021-12-04] MEDS ORDERED: THIAMINE 100 MG, FOLIC ACID 1 MG, MULTIPLE VITAMIN INJ, ADULT 10 ML in SODIUM CHLORIDE ... IV ONE (09:00)
[2021-12-04 10:28] LABS: Eosinophils % (Auto) 0.4 % (0.0-4.3); Hemoglobin 13.1 gm/dl (11.8-15.2); Lymphocytes # (Auto) 0.8 K/mm3 (1.2-5.4); Mean Corpuscular HGB Conc 33 % (32-34); Mean Corpuscular Volume 89 fl (84-94); Monocytes # (Auto) 0.3 K/mm3 (0.0-0.8); Monocytes % (Auto) 8.6 % (0.0-7.3); Platelet Count 192 K/mm3 (140-440); Red Cell Distribution Width 13.8 % (13.2-15.2)
[2021-12-04 10:31] LABS: INR 0.91 (0.87-1.13); Partial Thromboplastin Time 26.3 Sec. (24.2-36.6)
--- NOTE | 2021-12-04 11:40 | Emergency Department Report ---
ED Psych HPI - General Chief Complaint: Alcohol Stated Complaint: WITHDRAWALS Time Seen by Provider: 12/04/21 08:14 Source: patient Mode of arrival: Ambulatory - History of Present Illness Initial Comments: Chief complaint: "I need help." HPI: This is a 41-year-old male with history of HTN, anxiety, depression, polysubstance use including alcohol, pills who presents with anxiety depression suicidal ideation. His told him that if he did not get help, she would leave him. He is concerned that his and children will leave him. He has been unemployed for 1 month. He states that he is unable to perform at work when he is intoxicated. He does not have a plan to harm himself. He was sent to our emergency medicine department from [facility] for medical clearance. Last drink of alcohol was this morning. Patient used cocaine last night MD Complaint: suicidal ideation, feels depressed -: month(s) (Several months) History of same: Yes Quality: constant Improves With: none Worsens With: none Context: recent alcohol abuse, recent drug abuse, not taking psychiatric, significant life stressor Treatments Prior to Arrival: other (Referred from [facility].) If Self Harm: admits thoughts of - Related Data Previous Rx's Medication Instructions Recorded Last Taken Type Omeprazole 40 mg PO BID #20 capsule. 12/28/20 Unknown Rx Ondansetron [Zofran ODT TAB] 4 mg PO Q6HR PRN #20 tab.tess 09/09/21 Unknown Rx Multivitamin with Folic Acid [Cvs 400 mcg PO QDAY #30 tablet 12/01/21 Unknown Rx One Daily Essential Tablet] chlordiazePOXIDE [Librium] 25 mg PO Q6H PRN #25 capsule 12/01/21 Unknown Rx Allergies Allergy/AdvReac Type Severity Reaction Status Date / Time No Known Allergies Allergy Verified 11/23/21 16:44 ED Review of Systems ROS: Stated complaint: WITHDRAWALS Other details as noted in HPI Comment: All other systems reviewed and negative Constitutional: denies: chills, fever, malaise Respiratory: denies: cough, shortness of breath Cardiovascular: denies: chest pain Gastrointestinal: denies: abdominal pain, nausea, vomiting Skin: denies: rash, lesions Psychiatric: anxiety, depression, suicidal thoughts ED Past Medical Hx - Past Medical History Previous Medical History?: Yes Hx Hypertension: Yes Additional medical history: anxiety - Surgical History Past Surgical History?: No - Social History Smoking Status: Unknown if ever smoked Substance Use Type: Alcohol, Cocaine, Tranquilizers - Medications Home Medications: Home Medications Medication Instructions Recorded Confirmed Last Taken Type Omeprazole 40 mg PO BID #20 capsule. 12/28/20 11/23/21 Unknown Rx Ondansetron [Zofran ODT TAB] 4 mg PO Q6HR PRN #20 tab.tess 09/09/21 11/23/21 Unknown Rx Multivitamin with Folic Acid [[facility]vs 400 mcg PO QDAY #30 tablet 12/01/21 Unknown Rx One Daily Essential Tablet] chlordiazePOXIDE [Librium] 25 mg PO Q6H PRN #25 capsule 12/01/21 Unknown Rx ED Physical Exam - General Limitations: No Limitations General appearance: alert, in no apparent distress - Head Head exam: Present: atraumatic, normocephalic - Eye Eye exam: Present: normal appearance - ENT ENT exam: Present: mucous membranes moist - Neck Neck exam: Present: normal inspection, full ROM - Respiratory Respiratory exam: Present: normal lung sounds bilaterally. Absent: respiratory distress, wheezes, rales, rhonchi - Cardiovascular Cardiovascular Exam: Present: regular rate, normal rhythm, normal heart sounds. Absent: systolic murmur, diastolic murmur, rubs, gallop - GI/Abdominal GI/Abdominal exam: Present: soft, normal bowel sounds. Absent: distended, tenderness, guarding, rebound - Rectal Rectal exam: Present: deferred - Extremities Exam Extremities exam: Present: normal inspection - Neurological Exam Neurological exam: Present: alert, oriented X3 - Psychiatric Psychiatric exam: Present: normal affect, normal mood, suicidal ideation - Skin Skin exam: Present: warm, dry, intact, normal color. Absent: rash ED Course Vital Signs 12/04/21 12/04/21 08:03 08:08 Temperature 98.3 F Pulse Rate 115 H Respiratory 19 Rate Blood Pressure 152/108 O2 Sat by Pulse 99 Oximetry ED Medical Decision Making - Lab Data Result diagrams: 12/04/21 09:45 Laboratory Results - last 24 hr 12/04/21 12/04/21 12/04/21 09:45 09:45 09:45 WBC 3.5 L RBC 4.50 Hgb 13.1 Hct 40.0 MCV 89 MCH 29 MCHC 33 RDW 13.8 Plt Count 192 Lymph % (Auto) 23.0 Rhea % (Auto) 8.6 H Eos % (Auto) 0.4 Baso % (Auto) Communications Operator Lymph # (Auto) 0.8 L Rhea # (Auto) 0.3 Eos # (Auto) 0.0 Baso # (Auto) 0.0 Seg Neutrophils % 67.1 Seg Neutrophils # 2.3 PT 13.3 INR 0.91 APTT 26.3 Magnesium 1.90 Total Creatine Kinase Troponin T Lipase 72 H TSH Salicylates Acetaminophen Plasma/Serum Alcohol 12/04/21 12/04/21 12/04/21 09:45 09:45 09:45 WBC RBC Hgb Hct MCV MCH MCHC RDW Plt Count Lymph % (Auto) Rhea % (Auto) Eos % (Auto) Baso % (Auto) Lymph # (Auto) Rhea # (Auto) Eos # (Auto) Baso # (Auto) Seg Neutrophils % Seg Neutrophils # PT INR APTT Magnesium Total Creatine Kinase Troponin T Lipase TSH Salicylates < 0.3 L Acetaminophen 5.0 L Plasma/Serum Alcohol < 0.01 12/04/21 12/04/21 12/04/21 09:45 09:45 09:45 WBC RBC Hgb Hct MCV MCH MCHC RDW Plt Count Lymph % (Auto) Rhea % (Auto) Eos % (Auto) Baso % (Auto) Lymph # (Auto) Rhea # (Auto) Eos # (Auto) Baso # (Auto) Seg Neutrophils % Seg Neutrophils # PT INR APTT Magnesium Total Creatine Kinase 348 H Troponin T < 0.010 Lipase TSH 2.380 Salicylates Acetaminophen Plasma/Serum Alcohol - Medical Decision Making Mr. Lemon has hx of anxiety depression and polysubstance abuse. He has severe anxiety and depression with suicidal ideation. He was referred to the ED for medical clearance. I have reviewed labs including CBC chemistry serum toxicology which all were unremarkable. Lipase equivocal level. No clinical indication of pancreatitis. He is medically clear for psychiatric care. He does not have a plan to harm himself. I strongly encouraged him to return back to [facility] for mental health treatment. Critical care attestation.: If time is entered above; I have spent that time in minutes in the direct care of this critically ill patient, excluding procedure time. ED Disposition Clinical Impression: Anxiety, Depression, Alcohol dependence, Polysubstance abuse, Medical clearance for psychiatric admission Disposition: 01 HOME / SELF CARE / HOMELESS Is pt being admited?: No Does the pt Need Aspirin: No Condition: Stable Additional Instructions: You are medically cleared for psychiatric care. You are medically cleared for mental health treatment. Please return to [facility] for evaluation.
[2021-12-04 12:24] VITALS: BP 143/94
== END 2021-12-04 12:23 | disposition home or self-care (01) ==
LOC: ED 06:42
DX: F41.9 Anxiety disorder, unspecified (principal); F32.A Depression, unspecified; F17.200 Nicotine dependence, unspecified, uncomplicated; F19.10 Other psychoactive substance abuse, uncomplicated; Z13.30 Encounter for screening examination for mental health and behavioral disorders, unspecified; I10 Essential (primary) hypertension
CPT/HCPCS: 36415; 82550; 83690; 83735; 84443; 84484; 85025; 85610; 85730; 96365; 96366; 96375; 99283; J2405; J3411; J3490; J7030; 80320; Q0162; G0480

== ENCOUNTER 2021-12-17 01:57 | Emergency (ER) | payer OTHER ==
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
[2021-12-17] MEDS ORDERED: ONDANSETRON 4 MG/2 ML INJ IV ONE (08:19)
[2021-12-17] MEDS ORDERED: MORPHINE 4 MG/1 ML INJ IV ONE (08:19)
[2021-12-17] MEDS ORDERED: TETANUS,DIPH,PERTUSS(ACELL) VACCINE 0.5 ML SYRINGE IM ONE (08:21)
[2021-12-17] MEDS ORDERED: methOCARBAMOL 1,000 MG in SODIUM CHLORIDE 0.9% 250ML 250 ML IV ONE (09:00)
[2021-12-17 09:47] LABS: Basophils % (Auto) 0.1 % (0.0-1.8); Eosinophils % (Auto) 0.1 % (0.0-4.3); Hematocrit 36.7 % (35.5-45.6); Hemoglobin 11.9 gm/dl (11.8-15.2); Lymphocytes % (Auto) 13.5 % (13.4-35.0); Mean Corpuscular HGB Conc 33 % (32-34); Mean Corpuscular Volume 92 fl (84-94); Monocytes # (Auto) 0.4 K/mm3 (0.0-0.8); Monocytes % (Auto) 5.3 % (0.0-7.3); Platelet Count 511 K/mm3 (140-440); Red Blood Count 3.98 M/mm3 (3.65-5.03); Red Cell Distribution Width 14.6 % (13.2-15.2)
[2021-12-17 10:24] LABS: Alanine Aminotransferase 379 units/L (7-56); Albumin 4.4 g/dL (3.9-5); BUN/Creatinine Ratio 12; Blood Urea Nitrogen 11 mg/dL (9-20); Calcium 9.5 mg/dL (8.4-10.2); Hemolysis Index 15
[2021-12-17 10:46] LABS: Bilirubin,Direct < 0.2 mg/dL (0-0.2)
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
[2021-12-17] MEDS ORDERED: LACTATED RINGERS 1,000 ML IV ONE (11:28)
[2021-12-17] MEDS ORDERED: HYDROmorphone 1 MG/1 ML INJ IV ONE (11:28)
[2021-12-17 11:58] VITALS: BP 152/87
[2021-12-17 12:22] LABS: Bilirubin,Urine NEG (Negative); Blood,Urine NEG (Negative); Color,Urine Yellow (Yellow); Mucus,Urine FEW /HPF; Urobilinogen,Urine < 2.0 mg/dL (<2.0)
== END 2021-12-17 13:40 | disposition short-term general hospital (02) ==
LOC: ED 01:57
DX: S09.90XA Unspecified injury of head, initial encounter (principal); S69.91XA Unspecified injury of right wrist, hand and finger(s), initial encounter; S36.119A Unspecified injury of liver, initial encounter; R07.81 Pleurodynia; K66.1 Hemoperitoneum; I10 Essential (primary) hypertension; F41.9 Anxiety disorder, unspecified; F14.90 Cocaine use, unspecified, uncomplicated; Z72.89 Other problems related to lifestyle; Z79.899 Other long term (current) drug therapy; V87.7XXA Person injured in collision between other specified motor vehicles (traffic), initial encounter; Y93.89 Activity, other specified; Y92.488 Other paved roadways as the place of occurrence of the external cause; Y99.8 Other external cause status
CPT/HCPCS: 36415; 70450; 71110; 71260; 72125; 73130; 74177; 80048; 80076; 81001; 83690; 84484; 85025; 90471; 90715; 96361; 96365; 96375; 99291; J1170; J2270; J2405; J2800; J7050; J7120; Q9967